=== PATIENT | female | born 1990 | race African-American/Black ===

== ENCOUNTER 2018-08-29 09:43 | Inpatient (IN) | payer OTHER ==
[2018-08-29 10:20] VITALS: BMI 23.6
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
[2018-08-29] MEDS ORDERED: MENTHOL/PHENOL 1 EACH UD MM PRN (11:02)
[2018-08-29] MEDS ORDERED: P-EPHED 60MG/TRIPROLIDI 2.5MG TABLET PO PRN (11:02)
[2018-08-29] MEDS ORDERED: LOPERAMIDE HCL 2 MG CAPSULE PO PRN (11:02)
[2018-08-29] MEDS ORDERED: IBUPROFEN 400 MG TABLET (FP) PO PRN (11:02)
[2018-08-29] MEDS ORDERED: ACETAMINOPHEN 325 MG TABLET (FP) PO PRN (11:02)
[2018-08-29] MEDS ORDERED: guaiFENesin/D-METHORPHAN HB 10 ML UNIT-DOSE CUPS PO PRN (11:02)
[2018-08-29] MEDS ORDERED: MAG HYDROX/AL HYDROX/SIMETH 30 ML UNIT-DOSE CUP PO PRN (11:02)
[2018-08-29] MEDS ORDERED: MAGNESIUM CITRATE 300 ML BOTTLE PO PRN (11:02)
[2018-08-29] MEDS ORDERED: MAGNESIUM HYDROX 2400MG/30ML ORAL SUSPENSION 30 ML CUP PO PRN (11:02)
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
[2018-08-29 15:14] LABS: ALBUMIN 3.6 g/dl (3.4-5.0); ALK PHOS 73 U/L (45-117); ANION GAP 6 MMOL/L (8-16); BILIRUBIN,TOTAL 0.5 mg/dL (0.2-1); BLOOD UREA NITROGEN 7 mg/dL (7-18); CALCIUM 8.9 mg/dL (8.5-10.1); CHLORIDE 100 mmol/L (98-107); CO2 30 mmol/L (21-32); CREATININE 0.9 mg/dL (0.55-1.3); GLUCOSE,RANDOM 101 mg/dL (74-106); POTASSIUM 4.2 mmol/L (3.5-5.1); SGOT/AST 25 U/L (15-37); SGPT/ALT 20 U/L (13-61); SODIUM 136 mmol/L (136-145); TOT PROT 7.3 g/dl (6.4-8.2)
[2018-08-29 15:36] LABS: HEMATOCRIT 37.5 % (32.4-45.2); HEMOGLOBIN 12.5 GM/dL (10.7-15.3); MCH 32.2 pg (25.7-33.7); MCHC 33.2 g/dl (32.0-36.0); MEAN PLT VOLUME 8.5 fl (7.5-11.1); PLATELET COUNT 261 K/MM3 (134-434); RBC 3.87 M/mm3 (3.60-5.2); RDW 16.6 % (11.6-15.6); WHITE BLOOD COUNT 6.6 K/mm3 (4.0-10.0)
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
[2018-08-29] MEDS ORDERED: TUBERCULIN PPD 5 TU/0.1ML VIAL ID ONE (17:07)
[2018-08-29] MEDS: metroNIDAZOLE 250 MG TABLET PO SCH (21:45)
[2018-08-29] MEDS: traZODone HCL 100 MG TABLET (FP) PO SCH (21:45)
[2018-08-29] MEDS: QUEtiapine FUMARATE 50 MG TABLET PO SCH (21:45)
[2018-08-29] MEDS: THIAMINE HCL 100 MG TABLET (FP) PO SCH (21:45)
[2018-08-30] MEDS: PRENATAL VITAMINS W/ FOLIC ACID TABLET (FP) PO SCH (10:00)
[2018-08-30] MEDS: metroNIDAZOLE 250 MG TABLET PO SCH ×2 (10:01→21:42)
--- NOTE | 2018-08-30 12:27 | EKG ---
Test Reason : Blood Pressure : / mmHG Vent. Rate : 066 BPM Atrial Rate : 066 BPM P-R Int : 128 ms QRS Dur : 078 ms QT Int : 420 ms P-R-T Axes : -05 068 054 degrees QTc Int : 440 ms NORMAL SINUS RHYTHM NORMAL ECG NO PREVIOUS ECGS AVAILABLE Confirmed by SHRAVAN HELMS MD ([id number]) on 08/30/2018 12:26:55 PM Referred By: Confirmed By:SHRAVAN HELMS MD
[2018-08-30 19:31] LABS: URINE APPEARANCE SLCLOUDY; URINE BILIRUBIN NEGATIVE (<2.0 mg/dL); URINE COLOR LTYELLOW; URINE GLUCOSE (UA) NEGATIVE (NEGATIVE); URINE KETONE NEGATIVE (NEGATIVE); URINE NITRITE NEGATIVE (NEGATIVE); URINE PROTEIN NEGATIVE (NEGATIVE); URINE UROBILINOGEN NEGATIVE mg/dL (0.2-1.0)
[2018-08-30 19:32] LABS: URINE LEUK ESTERASE 3+ (NEGATIVE)
[2018-08-30 19:54] LABS: EPI CELLS FEW /HPF (FEW); URINE BACTERIA MANY /hpf (NONE SEEN); URINE MUCUS RARE
[2018-08-30] MEDS: THIAMINE HCL 100 MG TABLET (FP) PO SCH (21:42)
[2018-08-30] MEDS: QUEtiapine FUMARATE 50 MG TABLET PO SCH (21:42)
[2018-08-30] MEDS: traZODone HCL 100 MG TABLET (FP) PO SCH (21:43)
[2018-08-31] MEDS: metroNIDAZOLE 250 MG TABLET PO SCH ×2 (09:16→21:27)
[2018-08-31] MEDS: PRENATAL VITAMINS W/ FOLIC ACID TABLET (FP) PO SCH (09:16)
[2018-08-31] MEDS: traZODone HCL 100 MG TABLET (FP) PO SCH (21:27)
[2018-08-31] MEDS: QUEtiapine FUMARATE 50 MG TABLET PO SCH (21:27)
[2018-08-31] MEDS: THIAMINE HCL 100 MG TABLET (FP) PO SCH (21:28)
[2018-09-01] MEDS: metroNIDAZOLE 250 MG TABLET PO SCH ×2 (10:05→21:28)
[2018-09-01] MEDS: hydrOXYzine PAMOATE 50 MG CAPSULE (FP) PO PRN ×3 (10:06→21:30)
[2018-09-01] MEDS: PRENATAL VITAMINS W/ FOLIC ACID TABLET (FP) PO SCH (10:06)
[2018-09-01] MEDS: traZODone HCL 100 MG TABLET (FP) PO SCH (21:28)
[2018-09-01] MEDS: QUEtiapine FUMARATE 50 MG TABLET PO SCH (21:28)
[2018-09-01] MEDS: THIAMINE HCL 100 MG TABLET (FP) PO SCH (21:29)
[2018-09-02] MEDS: metroNIDAZOLE 250 MG TABLET PO SCH ×2 (10:24→22:53)
[2018-09-02] MEDS: hydrOXYzine PAMOATE 50 MG CAPSULE (FP) PO PRN ×2 (10:25→18:15)
[2018-09-02] MEDS: PRENATAL VITAMINS W/ FOLIC ACID TABLET (FP) PO SCH (10:25)
[2018-09-02] MEDS: traZODone HCL 100 MG TABLET (FP) PO SCH (22:52)
[2018-09-02] MEDS: THIAMINE HCL 100 MG TABLET (FP) PO SCH (22:53)
[2018-09-02] MEDS: QUEtiapine FUMARATE 50 MG TABLET PO SCH (22:53)
[2018-09-03] MEDS: PRENATAL VITAMINS W/ FOLIC ACID TABLET (FP) PO SCH (10:11)
[2018-09-03] MEDS: metroNIDAZOLE 250 MG TABLET PO SCH ×2 (10:26→21:51)
[2018-09-03] MEDS: hydrOXYzine PAMOATE 50 MG CAPSULE (FP) PO PRN ×2 (10:26→21:51)
--- NOTE | 2018-09-03 13:55 | PN ---
[facility] Progress Note Note: Vital Signs Temperature 97.8 F 08/29/18 12:50 Pulse Rate 67 08/29/18 12:50 Respiratory Rate 16 09/03/18 00:30 Blood Pressure 111/77 08/29/18 12:50 O2 Sat by Pulse Oximetry (%) Laboratory Last Values WBC 6.6 K/mm3 (4.0-10.0) 08/29/18 11:05 RBC 3.87 M/mm3 (3.60-5.2) 08/29/18 11:05 Hgb 12.5 GM/dL (10.7-15.3) 08/29/18 11:05 Hct 37.5 % (32.4-45.2) 08/29/18 11:05 MCV 97.0 fl (80-96) H 08/29/18 11:05 MCH 32.2 pg (25.7-33.7) 08/29/18 11:05 MCHC 33.2 g/dl (32.0-36.0) 08/29/18 11:05 RDW 16.6 % (11.6-15.6) H 08/29/18 11:05 Plt Count 261 K/MM3 (134-434) 08/29/18 11:05 MPV 8.5 fl (7.5-11.1) 08/29/18 11:05 Sickle Cell Screen Positive (NEGATIVE) 08/29/18 11:05 Sodium 136 mmol/L (136-145) 08/29/18 11:05 Potassium 4.2 mmol/L (3.5-5.1) 08/29/18 11:05 Chloride 100 mmol/L (98-107) 08/29/18 11:05 Carbon Dioxide 30 mmol/L (21-32) 08/29/18 11:05 Anion Gap 6 MMOL/L (8-16) L 08/29/18 11:05 BUN 7 mg/dL (7-18) 08/29/18 11:05 Creatinine 0.9 mg/dL (0.55-1.3) 08/29/18 11:05 Creat Clearance w eGFR > 60 (>60) 08/29/18 11:05 Random Glucose 101 mg/dL (74-106) 08/29/18 11:05 Calcium 8.9 mg/dL (8.5-10.1) 08/29/18 11:05 Total Bilirubin 0.5 mg/dL (0.2-1) 08/29/18 11:05 AST 25 U/L (15-37) 08/29/18 11:05 ALT 20 U/L (13-61) 08/29/18 11:05 Alkaline Phosphatase 73 U/L (45-117) 08/29/18 11:05 Total Protein 7.3 g/dl (6.4-8.2) 08/29/18 11:05 Albumin 3.6 g/dl (3.4-5.0) 08/29/18 11:05 Urine Color Ltyellow 08/30/18 15:15 Urine Appearance Slcloudy 08/30/18 15:15 Urine pH 7.0 (5.0-8.0) 08/30/18 15:15 Ur Specific [place] 1.006 (1.010-1.035) L 08/30/18 15:15 Urine Protein Negative (NEGATIVE) 08/30/18 15:15 Urine Glucose (UA) Negative (NEGATIVE) 08/30/18 15:15 Urine Ketones Negative (NEGATIVE) 08/30/18 15:15 Urine Blood Negative (NEGATIVE) 08/30/18 15:15 Urine Nitrite Negative (NEGATIVE) 08/30/18 15:15 Urine Bilirubin Negative (<2.0 mg/dL) 08/30/18 15:15 Urine Urobilinogen Negative mg/dL (0.2-1.0) 08/30/18 15:15 Ur Leukocyte Esterase 3+ (NEGATIVE) H 08/30/18 15:15 Urine WBC (Auto) 8 /hpf (3-5) 08/30/18 15:15 Urine RBC (Auto) 1 /hpf (0-3) 08/30/18 15:15 Ur Epithelial Cells Few /HPF (FEW) 08/30/18 15:15 Urine Bacteria Many /hpf (NONE SEEN) 08/30/18 15:15 Urine Mucus Rare 08/30/18 15:15 RPR Titer Nonreactive (NONREACTIVE) 08/29/18 11:05 Patient resistant to taking prescribed flagyl. Patiet educated on the reason for treatment. Patient verbalizes understanding, and agree to continue tx for trachimonas.
[2018-09-03] MEDS: QUEtiapine FUMARATE 50 MG TABLET PO SCH (21:51)
[2018-09-03] MEDS: THIAMINE HCL 100 MG TABLET (FP) PO SCH (21:51)
[2018-09-03] MEDS: traZODone HCL 100 MG TABLET (FP) PO SCH (21:51)
[2018-09-04] MEDS: PRENATAL VITAMINS W/ FOLIC ACID TABLET (FP) PO SCH (10:45)
[2018-09-04] MEDS: metroNIDAZOLE 250 MG TABLET PO SCH ×2 (10:45→21:38)
[2018-09-04] MEDS: hydrOXYzine PAMOATE 50 MG CAPSULE (FP) PO PRN (10:45)
[2018-09-04] MEDS: THIAMINE HCL 100 MG TABLET (FP) PO SCH (21:38)
[2018-09-04] MEDS: QUEtiapine FUMARATE 50 MG TABLET PO SCH (21:38)
[2018-09-04] MEDS: MELATONIN 5 MG TABLETS PO PRN (21:38)
[2018-09-04] MEDS: traZODone HCL 100 MG TABLET (FP) PO SCH (21:39)
[2018-09-05] MEDS: metroNIDAZOLE 250 MG TABLET PO SCH (10:16)
[2018-09-05] MEDS: PRENATAL VITAMINS W/ FOLIC ACID TABLET (FP) PO SCH (10:16)
[2018-09-05] MEDS: THIAMINE HCL 100 MG TABLET (FP) PO SCH (21:10)
[2018-09-05] MEDS: QUEtiapine FUMARATE 50 MG TABLET PO SCH (21:10)
[2018-09-05] MEDS: traZODone HCL 100 MG TABLET (FP) PO SCH (21:10)
[2018-09-06] MEDS: PRENATAL VITAMINS W/ FOLIC ACID TABLET (FP) PO SCH (10:03)
[2018-09-06 18:29] LABS: URINE APPEARANCE TURBID; URINE BILIRUBIN NEGATIVE (<2.0 mg/dL); URINE COLOR YELLOW; URINE GLUCOSE (UA) NEGATIVE (NEGATIVE); URINE KETONE NEGATIVE (NEGATIVE); URINE LEUK ESTERASE 1+ (NEGATIVE); URINE NITRITE NEGATIVE (NEGATIVE); URINE PROTEIN NEGATIVE (NEGATIVE); URINE UROBILINOGEN NEGATIVE mg/dL (0.2-1.0)
[2018-09-06 19:05] LABS: EPI CELLS RARE /HPF (FEW); URINE BACTERIA RARE /hpf (NONE SEEN); URINE HYALINE CAST 1 /lpf; URINE MUCUS MANY
[2018-09-06] MEDS: THIAMINE HCL 100 MG TABLET (FP) PO SCH (21:39)
[2018-09-06] MEDS: QUEtiapine FUMARATE 50 MG TABLET PO SCH (21:39)
[2018-09-06] MEDS: traZODone HCL 100 MG TABLET (FP) PO SCH (21:39)
[2018-09-07] MEDS: PRENATAL VITAMINS W/ FOLIC ACID TABLET (FP) PO SCH (09:58)
[2018-09-07] MEDS: traZODone HCL 100 MG TABLET (FP) PO SCH (22:01)
[2018-09-07] MEDS: QUEtiapine FUMARATE 50 MG TABLET PO SCH (22:01)
[2018-09-07] MEDS: THIAMINE HCL 100 MG TABLET (FP) PO SCH (22:01)
[2018-09-08] MEDS: PRENATAL VITAMINS W/ FOLIC ACID TABLET (FP) PO SCH (10:21)
[2018-09-08] MEDS: THIAMINE HCL 100 MG TABLET (FP) PO SCH (21:45)
[2018-09-08] MEDS: QUEtiapine FUMARATE 50 MG TABLET PO SCH (21:45)
[2018-09-08] MEDS: traZODone HCL 100 MG TABLET (FP) PO SCH (21:46)
[2018-09-09] MEDS: PRENATAL VITAMINS W/ FOLIC ACID TABLET (FP) PO SCH (10:15)
--- NOTE | 2018-09-09 13:00 | PN ---
[facility] Progress Note Note: Laboratory Tests 08/29/18 08/29/18 08/29/18 11:05 11:05 11:05 WBC 6.6 RBC 3.87 Hgb 12.5 Hct 37.5 MCV 97.0 H MCH 32.2 MCHC 33.2 RDW 16.6 H Plt Count 261 MPV 8.5 Sickle Cell Screen Sodium 136 Potassium 4.2 Chloride 100 Carbon Dioxide 30 Anion Gap 6 L BUN 7 Creatinine 0.9 Creat Clearance w eGFR > 60 Random Glucose 101 Calcium 8.9 Total Bilirubin 0.5 AST 25 ALT 20 Alkaline Phosphatase 73 Total Protein 7.3 Albumin 3.6 Urine Color Urine Appearance Urine pH Ur Specific [place] Urine Protein Urine Glucose (UA) Urine Ketones Urine Blood Urine Nitrite Urine Bilirubin Urine Urobilinogen Ur Leukocyte Esterase Urine WBC (Auto) Urine RBC (Auto) Ur Epithelial Cells Urine Bacteria Hyaline Casts Urine Mucus RPR Titer Nonreactive 08/29/18 08/30/18 09/06/18 11:05 15:15 15:53 WBC RBC Hgb Hct MCV MCH MCHC RDW Plt Count MPV Sickle Cell Screen Positive Sodium Potassium Chloride Carbon Dioxide Anion Gap BUN Creatinine Creat Clearance w eGFR Random Glucose Calcium Total Bilirubin AST ALT Alkaline Phosphatase Total Protein Albumin Urine Color Ltyellow Yellow Urine Appearance Slcloudy Turbid Urine pH 7.0 5.0 D Ur Specific [place] 1.006 L 1.027 Urine Protein Negative Negative Urine Glucose (UA) Negative Negative Urine Ketones Negative Negative Urine Blood Negative Negative Urine Nitrite Negative Negative Urine Bilirubin Negative Negative Urine Urobilinogen Negative Negative Ur Leukocyte Esterase 3+ H 1+ H D Urine WBC (Auto) 8 2 Urine RBC (Auto) 1 1 Ur Epithelial Cells Few Rare Urine Bacteria Many Rare Hyaline Casts 1 Urine Mucus Rare Many RPR Titer Microbiology 09/06/18 15:53 Urine - Urine Clean Catch Urine Culture - Final Proteus Mirabilis UNCOMPLICATED UTI LEVAQUIN 250 MG PO DAILY X 3 DAYS. INCREASE PO FLUIDS
[2018-09-09 14:17] LABS: HGB SOLUBILITY Negative (Negative); Hgb A 97.2 % (96.4-98.8); Hgb C 0 % (0.0); Hgb F 0.7 % (0.0-2.0); Hgb S 0 % (0.0)
[2018-09-09] MEDS: traZODone HCL 100 MG TABLET (FP) PO SCH (21:50)
[2018-09-09] MEDS: THIAMINE HCL 100 MG TABLET (FP) PO SCH (21:50)
[2018-09-09] MEDS: QUEtiapine FUMARATE 50 MG TABLET PO SCH (21:50)
[2018-09-09] MEDS: MELATONIN 5 MG TABLETS PO PRN (21:51)
[2018-09-09] MEDS ORDERED: PT OWN MED DRAWER 7, Y5N ONE (21:57)
[2018-09-10] MEDS ORDERED: PT OWN MED DRAWER 7, Y5N ONE (05:45)
[2018-09-10] MEDS: PRENATAL VITAMINS W/ FOLIC ACID TABLET (FP) PO SCH (09:54)
[2018-09-10] MEDS: THIAMINE HCL 100 MG TABLET (FP) PO SCH (23:19)
[2018-09-10] MEDS: traZODone HCL 100 MG TABLET (FP) PO SCH (23:19)
[2018-09-10] MEDS: QUEtiapine FUMARATE 50 MG TABLET PO SCH (23:19)
[2018-09-11] MEDS ORDERED: PT OWN MED DRAWER 7, Y5N ONE (03:09)
[2018-09-11 06:27] VITALS: BP 111/78; PULSE 103; TEMP 97.8
[2018-09-11] MEDS: PRENATAL VITAMINS W/ FOLIC ACID TABLET (FP) PO SCH (09:15)
== END 2018-09-11 09:17 | disposition home or self-care (01) | DRG 772 ==
LOC: YASAS 09:43 → Y3E 11:10
PROVIDERS: ADMIT Psychiatry & Neurology Psychiatry; ATTEND Psychiatry & Neurology Psychiatry
PROC: HZ42ZZZ Group Counseling for Substance Abuse Treatment, Cognitive-Behavioral (ICD-10-PCS; principal; 2018-08-29)
DX: F10.20 Alcohol dependence, uncomplicated (principal); F14.20 Cocaine dependence, uncomplicated; F12.20 Cannabis dependence, uncomplicated; F19.24 Other psychoactive substance dependence with psychoactive substance-induced mood disorder; F41.8 Other specified anxiety disorders; F32.9 Major depressive disorder, single episode, unspecified; G47.00 Insomnia, unspecified; J45.909 Unspecified asthma, uncomplicated; N76.0 Acute vaginitis; B96.4 Proteus (mirabilis) (morganii) as the cause of diseases classified elsewhere; S00.12XA Contusion of left eyelid and periocular area, initial encounter; S05.12XA Contusion of eyeball and orbital tissues, left eye, initial encounter; H11.32 Conjunctival hemorrhage, left eye; Y04.8XXA Assault by other bodily force, initial encounter; Y93.89 Activity, other specified; Y92.89 Other specified places as the place of occurrence of the external cause; Y99.8 Other external cause status; R63.4 Abnormal weight loss; Z68.23 Body mass index [BMI] 23.0-23.9, adult; Z59.0 Homelessness
CPT/HCPCS: 36415; 80053; 81003; 81015; 83021; 85027; 85660; 86593; 87086; 87102; 87186; 87210; 93005; 93010